=== PATIENT | female | born 2000 | race Caucasian/White ===

== ENCOUNTER → 2019-08-19 | Outpatient (REF) | payer OTHER ==
[2019-08-19 12:56] LABS: BASO % 0.4 % (0.0-1.0); EOS # 0.1 10^3/uL (0.0-0.5); EOS % 0.8 % (0.0-3.0); HEMATOCRIT 36.5 % (36.0-47.0); HEMOGLOBIN 12.1 g/dl (12.0-15.5); LYMPH % 25.6 % (24.0-44.0); MEAN CORPUSCULAR HEMOGLOBIN 29.1 pg (27.0-33.0); MEAN CORPUSCULAR HGB CONC 33.2 g/dl (32.0-36.5); MEAN CORPUSCULAR VOLUME 87.7 fl (80.0-96.0); MONO # 0.4 10^3/uL (0.0-0.8); MONO % 5.1 % (0.0-5.0); NEUTROPHILS # 5.2 10^3/uL (1.5-8.5); NEUTROPHILS % 67.7 % (36.0-66.0); PLATELET COUNT, AUTOMATED 347 10^3/uL (150-450); RED BLOOD COUNT 4.16 10^6/uL (4.00-5.40); WHITE BLOOD COUNT 7.6 10^3/uL (4.0-10.0)
[2019-08-19 13:18] LABS: ALBUMIN 3.6 GM/DL (3.2-5.2); ALT/SGPT 17 U/L (12-78); BILIRUBIN,TOTAL 0.8 MG/DL (0.2-1.0); BLOOD UREA NITROGEN 8 MG/DL (7-18); C REACTIVE PROTEIN QUANTITATIV 1.23 MG/DL (0.00-0.30); CALCIUM LEVEL 9.1 MG/DL (8.5-10.1); CARBON DIOXIDE LEVEL 24 MEQ/L (21-32); CHLORIDE LEVEL 105 MEQ/L (98-107); CREATININE FOR GFR 0.56 MG/DL (0.55-1.30); GLUCOSE, FASTING 82 MG/DL (70-100); POTASSIUM SERUM 4.4 MEQ/L (3.5-5.1); RHEUMATOID FACTOR QUANT < 10.0 IU/ML (<15.0); SODIUM LEVEL 139 MEQ/L (136-145)
[2019-08-19 13:40] LABS: ERYTHROCYTE SEDIMENTATION RATE 17 mm/hr (0-20)
[2019-08-24 00:06] LABS: ANA (HEP2) Negative (.); CYCLIC CITRULLINATED PEPTIDE 7 units (0-19); HLA-B27 Negative (.)
== END ==
LOC: M SFHCRHEU 10:33
PROVIDERS: ATTEND Internal Medicine
DX: M25.50 Pain in unspecified joint (principal); M53.3 Sacrococcygeal disorders, not elsewhere classified; E03.9 Hypothyroidism, unspecified
CPT/HCPCS: 36415; 80053; 81374; 84439; 84443; 85025; 85652; 86038; 86140; 86200; 86431; G0463

== ENCOUNTER 2020-01-12 19:06 | Inpatient (IN) | payer OTHER ==
[2020-01-12] VITALS (7 sets, daily range): BP systolic 96–140; BP diastolic 56–101
[~2020-01-12] VITALS: Ht 154.9 cm; Wt 103.4 kg
[2020-01-12] MEDS ORDERED: PREN29TA4 PO (19:59)
[2020-01-12] MEDS ORDERED: LEVO2TA PO (19:59)
--- NOTE | 2020-01-12 20:21 | HPEPDOC ---
Obstetrical History & Physical General Date of Admission Jan 12, 2020 at 19:06 History of Present Illness patient is a 19 yo @ 37wks gestation by lmp c/w 8wks US FAHEEM ([id number]) with pre-eclampsia without severe feature presents for scheduled IOL. today denies GARCIA/N/V/change in vision/abdominal pain. 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 BREAST: . ABDOMEN: Gravid and non-tender to touch. FETUS: fetus is vertex (VTX) by John. HEART RATE: Regular rate and rhythm. LUNGS: Clear to auscultation (CTA). EXTREMITIES: No edema. No clonus. Deep tendon reflexes (DTRs) + . EFW: 2800gm Laboratory Data 24H LABS Laboratory Tests 2 01/12/20 19:41: Serology Scanned Report Hepatitis B Testing Urine Culture: Other (gbs) Pertinent Laboratoy Data Blood Type: A- RBC Antibody Screen: Negative HIV: Negative Hepatitis B: Negative Rapid Plasma Reagin: Nonreactive Rubella: Immune Varicella: Immune Chlamydia/Gonorrhea: Negative Group B Streptococcus: Positive (URINE) Glucose Tolerance Test: 131 Anatomy Ultrasound Placenta Location: Anterior Normal Anatomy: Yes Placenta Previa: No Steroid Therapy Steroid Therapy: No Vaginal Examination Dilation: None Station: +4 Cervical Consistency: Medium Cervical Position: Middle Presentation: Cephalic presentation Assessment Heart Rate (FHR): 130 Variability: Moderate Accelerations: Positive Decelerations: None Tocometer Contractions: No Assessment/Plan Assessment patient is a 19 yo @ 37WKS with pre-eclampsia without severe feature admitted for IOL. Discussed induction with cytotect, blue bulb, pit, arom as needed. patient counseled regarding external and internal monitor. discussed possible need for magnesium and antihypertensive medication if having severe features. Risks of emergent section, infection requiring antibiotics, bleeding needing blood transfusion and associated risks, use of forceps or vacuums and associated risks, and episiotomy discussed with patient. Plan Admit and orient. Technology Consultant and consent. Diet: regular Group B Streptococcus (GBS) positive, start when in active labor pre-e labs start induction with cytotec, blue bulb, pit and arom as indicated anesthesia consult pelvis adequate for trial of labor. DO MAXWELL Sullivan LUAT N. DO Jan 12, 2020 20:21
[2020-01-12 20:24] LABS: HEMATOCRIT 34.3 % (36.0-47.0); HEMOGLOBIN 11.3 g/dl (12.0-15.5); MEAN CORPUSCULAR HEMOGLOBIN 28.1 pg (27.0-33.0); MEAN CORPUSCULAR HGB CONC 32.9 g/dl (32.0-36.5); MEAN CORPUSCULAR VOLUME 85.3 fl (80.0-96.0); PLATELET COUNT, AUTOMATED 312 10^3/uL (150-450); RED BLOOD COUNT 4.02 10^6/uL (4.00-5.40); WHITE BLOOD COUNT 9.5 10^3/uL (4.0-10.0)
[2020-01-12 20:54] LABS: ALT/SGPT 13 U/L (12-78); BILIRUBIN,TOTAL 0.3 MG/DL (0.2-1.0); CREATININE FOR GFR 0.67 MG/DL (0.55-1.30); GLOMERULAR FILTRATION RATE > 60.0 (>60); LDH LACTATE DEHYDROGENASE 144 U/L (84-246); URIC ACID 5.8 MG/DL (2.6-6.0)
[2020-01-12] MEDS ORDERED: miSOPROStol 25 MCG 1/4 TAB (S0191) SL ONE (21:15)
[2020-01-13] VITALS (56 sets, daily range): BP systolic 88–199; BP diastolic 52–133
[2020-01-13] MEDS: miSOPROStol 50 MCG 1/2 TAB (S0191) SL SCH ×3 (01:20→08:30)
[2020-01-13] MEDS: FAMOTIDINE 20 MG TAB PO SCH ×3 (01:41→20:56)
[2020-01-13] MEDS: LEVOTHYROXINE 125MCG TABLET (0.125MG) PO SCH (06:07)
[2020-01-13] MEDS ORDERED: MORPHINE 10 MG/ML 1ML VIAL (J2270) IV ONE (07:00)
[2020-01-13] MEDS ORDERED: PROMETHAZINE INJ 25 MG/ML VIAL (J2550) IV ONE (07:00)
[2020-01-13] MEDS ORDERED: MORPHINE 10 MG/ML 1ML VIAL (J2270) IM ONE (07:00)
[2020-01-13] MEDS ORDERED: PENICILLIN G POTASSIUM IV 5 MU in D5W MINI-BAG PLUS 100 ML IV STA (07:18)
[2020-01-13] MEDS ORDERED: hydrALAZINE 20MG/ML 1ML VIAL (J0360 PER 20MG) IV STA ×2 (07:23→08:18)
--- NOTE | 2020-01-13 07:26 | IPNPDOC ---
Text Note Date of Service The patient was seen on 01/13/20. NOTE patient feeling painful contractions. received 4th dose of cytotec around 0545. requesting for pain medication. denies GARCIA/N/V/change in vision vitals: in severe range. NAD fth: 145/mod donaldo/pos accel/no decel toco: ctx q 3mins. ce: 2-3/75/-1 a/p patient in latent labor, having pain. elevated BP may be due to pain. will give IV pain meds and reassess. may need to start on IV antihypertensive and mag with persistent severe range BP. start PCN for GBS prophy. DO MAXWELL VS,Fishbone, I+O VS, Fishbone, I+O Laboratory Tests 01/12/20 19:36 Vital Signs Date Time Temp Pulse Resp B/P (MAP) Pulse Ox O2 Delivery O2 Flow Rate FiO2 01/13/20 07:05 20 01/13/20 05:38 67 140/79 (99) 01/13/20 04:14 98.0 01/12/20 19:53 98 Room Air I&O- Last 24 Hours up to 6 AM 01/13/20 06:00 Intake Total 565 ml Output Total 725 ml Balance -160 ml MARIAMA ARREOLA DO Jan 13, 2020 07:26
[2020-01-13] MEDS ORDERED: MAG Sulf (L&D) 4 GM/100 ML 4 GM in IV 1 EA IV ONE (07:30)
[2020-01-13] MEDS: LR 1,000 ML IV SCH ×2 (07:32→14:26)
[2020-01-13] MEDS: MAG Sulf (OBGYN) 20GM/500ML 20,000 MG in IV 1 EA IV SCH ×2 (08:18→18:44)
[2020-01-13 08:24] LABS: ALT/SGPT 13 U/L (12-78); BILIRUBIN,TOTAL 0.7 MG/DL (0.2-1.0); CREATININE FOR GFR 0.71 MG/DL (0.55-1.30); GLOMERULAR FILTRATION RATE > 60.0 (>60); LDH LACTATE DEHYDROGENASE 165 U/L (84-246); URIC ACID 5.9 MG/DL (2.6-6.0)
[2020-01-13 08:32] LABS: HEMATOCRIT 36.4 % (36.0-47.0); HEMOGLOBIN 12.1 g/dl (12.0-15.5); MEAN CORPUSCULAR HGB CONC 33.2 g/dl (32.0-36.5); MEAN CORPUSCULAR VOLUME 84.3 fl (80.0-96.0); PLATELET COUNT, AUTOMATED 320 10^3/uL (150-450); RED BLOOD COUNT 4.32 10^6/uL (4.00-5.40)
[2020-01-13] MEDS ORDERED: FAMOTIDINE 20 MG TAB PO SCH (09:00)
[2020-01-13] MEDS: PENICILLIN G POTASSIUM IV 2.5 MU in IV 1 EA IV SCH ×2 (11:15→15:18)
--- NOTE | 2020-01-13 12:56 | IPNPDOC ---
Obstetrical Progress Note Date of Service Jan 13, 2020 Subjective S: Sarah is a 19yo at 37+1wks admitted last night for IOL d/t Pre-E, now with severe features. She has received 5mg hydralazine and her loading dose of magnesium sulfate, and now on her maintenance dose. She also received morphine and Phenergan for pain and is tolerating her contractions very well. She is s/p 3 doses of cytotec. Objective O: VSS, afebrile, BP now normotensive FHR 120s, moderate variability, no accels or decels CTX: q4-7 minutes and spacing out VE: 3.5/90/-3, BBOW, but fetus ballotable Vital Signs Date Time Temp Pulse Resp B/P (MAP) Pulse Ox O2 Delivery O2 Flow Rate FiO2 01/13/20 11:19 97.9 20 01/13/20 10:35 59 122/73 (89) 01/12/20 19:53 98 Room Air Assessment Heart Rate Tracing: Category I Tocometer Contractions: Yes Sterile Vaginal Examination Postion/Presentation: Cephalic presentation Assessment and Plan Status: Reassuring Group B Streptococcus: Positive Anticipate: Vaginal Delivery Additional Comments A: 19yo at 37+1wks, Pre-E with severe features, s/p cytotec. Category I FHT. P: CEFM x2 Close maternal/ monitoring Monitor for s/sx of worsening BPs/symptoms of Pre-E Start pitocin per low dose protocol Epidural or IV pain meds when desired Co-manage with OB Anticipate PAT ROD CNM Jan 13, 2020 12:56
[2020-01-13] MEDS ORDERED: OXYTOCIN DRIP 30 UNITS in IV 1 EA IV SCH ×2 (13:00→16:04)
[2020-01-13] MEDS ORDERED: FENTANYL 2MCG/ML ROPIVACAINE 0.2% IN 0.9% NACL 100ML IVBAG As Ordered ONE (14:10)
--- NOTE | 2020-01-13 14:21 | IPNPDOC ---
Text Note Date of Service The patient was seen on 01/13/20. NOTE S: Tolerating ctx. O: VS within appropriate range ABD Gravid, NT SVE 5/100/0 LE no edema, NT FHT: category 1, 130s, reactive, no decels, ctx q1-2min A/P: Fetus reassuring. Labor progressing well. AROM clear fluid done. VS,Fishbone, I+O VS, Fishbone, I+O Laboratory Tests 01/12/20 19:36 01/13/20 07:47 01/13/20 08:19 Vital Signs Date Time Temp Pulse Resp B/P (MAP) Pulse Ox O2 Delivery O2 Flow Rate FiO2 01/13/20 11:19 97.9 20 01/13/20 10:35 59 122/73 (89) 01/12/20 19:53 98 Room Air I&O- Last 24 Hours up to 6 AM 01/13/20 05:59 Intake Total 565 ml Output Total 725 ml Balance -160 ml Donna Renae MD Jan 13, 2020 14:21
[2020-01-13] MEDS ORDERED: REFRIGERATOR IV KEYS XX PRN (15:00)
[2020-01-13] MEDS ORDERED: ONDANSETRON 4MG/2ML VIAL IV PRN ×2 (15:00→16:15)
[2020-01-13] MEDS ORDERED: diphenhydrAMINE 50MG/ML VIAL (J1200) IV PRN (15:00)
[2020-01-13] MEDS ORDERED: EPIDURAL COMMENT XX SCH (15:00)
[2020-01-13] MEDS ORDERED: LACTATED RINGER'S 1000 ML IV PRN (15:00)
[2020-01-13] MEDS ORDERED: FENTANYL/ROPIVACAINE/NACL BAG 100 ML EPIDURAL SCH (15:00)
[2020-01-13] MEDS ORDERED: EPIDURAL/PCA KEYS XX PRN (15:00)
[2020-01-13] MEDS ORDERED: NALOXONE INJ 0.4MG/1ML VIAL (J2310 PER 1MG) IV PRN (15:00)
[2020-01-13] MEDS ORDERED: ePHEDrine SULFATE 25 MG/5 ML(5MG/ML) SYRINGE IV PRN (15:00)
[2020-01-13] MEDS ORDERED: RHOGAM 300 MCG (1500 IU) INJ (J2790) IM SCH (16:15)
[2020-01-13] MEDS ORDERED: diphenhydrAMINE 25MG CAP PO PRN (16:15)
[2020-01-13] MEDS ORDERED: DIBUCAINE 1% OINTMENT 30GM TOP PRN (16:15)
[2020-01-13] MEDS ORDERED: CALCIUM CARBONATE 500 MG CHEW U/D PO PRN (16:15)
[2020-01-13] MEDS ORDERED: MOM 30ML SUSPENSION UDC PO PRN (16:15)
[2020-01-13] MEDS ORDERED: SIMETHICONE 80 MG CHEW TAB PO PRN (16:15)
[2020-01-13] MEDS ORDERED: ACETAMINOPHEN 500 MG TAB PO PRN (16:15)
[2020-01-13] MEDS ORDERED: ANUSOL HC CREAM 30GM TOP PRN (16:15)
[2020-01-13] MEDS ORDERED: MEASLES,MUMPS,RUBELLA VACCINE INJ (MMR-II) (90707) SC SCH (16:15)
--- NOTE | 2020-01-13 16:15 | DNPDOC ---
[facility] Delivery Note Delivery Note DATE OF DELIVERY: 01/13/2020 PREDELIVERY DIAGNOSIS: 37-1/7 weeks' gestation and labor. POST DELIVERY DIAGNOSIS: Delivered. PROCEDURE: Spontaneous vaginal delivery BASE CLOTH INSPECTOR: Dr. Renae ANESTHESIA: None. ESTIMATED BLOOD LOSS: 200 mL. FINDINGS: 4 pound 13 ounce 2190gm girl , Score 9/9, nuchal cord times 1. DELIVERY SUMMARY: Patient is a 19-year-old 2 now para 3 who was admitted to labor and delivery for severe preeclampsia with active labor for 10hours. Patient AROM clear around 1400. Baby girl head was delivered onto bed as I was walking into the room without difficulty over intact perineum. The nose and mouth were bulb suctioned. x1 nuchal cord was noted but delivered with body. Infant was handed on mother's belly. Cord was then clamped x2 and cut after pulsation. Pitocin bolus was started. Perineum and vagina was inspected and found to have no laceration. The placenta was then delivered at 1547 spontaneously intact. Cord had a 3 vessel cord. EBL was 200mL. The vagina and perineum were reinspected and no further lacerations were found and hemostasis was good. Fundus was firm. Patient tolerated delivery well. Donna Renae MD Jan 13, 2020 16:15
[2020-01-13] MEDS: DOCUSATE SODIUM 100 MG CAP PO SCH (20:56)
[2020-01-13] MEDS: IBUPROFEN 800 MG TAB PO PRN (20:59)
[2020-01-14] VITALS (23 sets, daily range): BP systolic 98–168; BP diastolic 54–97
--- NOTE | 2020-01-14 03:09 | IPNPDOC ---
Progress Note Date of Service: Jan 14, 2020 Day#: 1 Progress Note SUBJECT: Patient is a 19-year-old 2 now Para 2 status post uncomplicated spontaneous vaginal delivery without post vaginal laceration, doing well day # 1. She has been voiding well/abundant with catheter and tolerating regular diet. Breast feeding without issue. Reports lochia is like a normal period. Reports some cramping with . Denies any pain. OBJECTIVE: VITAL SIGNS: Within normal limits, afebrile. GENERAL: No acute distress HEENT: MMM BREAST: Nontender, no erythema CARDIOVASCULAR EXAMINATION: RRR RESPIRATORY EXAMINATION: Bilaterally clear ABDOMINAL EXAMINATION: Soft, appropriate tenderness, nondistended, fundus -2 PERINEUM: Intact, minimal lochia EXTREMITIES: no edema, nontender, DTR +2 ASSESSMENT: Patient is a 19-year-old 2 now Para 2 status post uncomplicated spontaneous vaginal delivery without post vaginal laceration, doing well day # 1. Vitals within normal limits, afebrile, hemodynamically stable with no evidence of infection. PLAN: 1. Continue care. 2. Tylenol and Motrin for pain. 3. Encourage breast feeding and ambulation. 4. Stop magnesium sulfate at 1600. VS, I&O, 24H, Fishbone Vital Signs/I&O Vital Signs Date Time Temp Pulse Resp B/P (MAP) Pulse Ox O2 Delivery O2 Flow Rate FiO2 01/13/20 14:37 97.8 20 01/13/20 14:35 90 01/13/20 14:31 136/82 (100) 01/12/20 19:53 98 Room Air I&O- Last 24 Hours up to 6 AM 01/13/20 06:00 Intake Total 565 ml Output Total 725 ml Balance -160 ml Laboratory Data 24H LABS Laboratory Tests 2 01/12/20 19:36: Nucleated Red Blood Cells % (auto) 0.0, Glomerular Filtration Rate > 60.0, Uric Acid 5.8, Total Bilirubin 0.3, Aspartate Amino Transf (AST/SGOT) 13, Alanine Aminotransferase (ALT/SGPT) 13, Lactate Dehydrogenase 144, Syphilis Serology NONREACTIVE 01/12/20 19:41: Serology Scanned Report Hepatitis B Testing 01/13/20 07:47: Glomerular Filtration Rate > 60.0, Uric Acid 5.9, Total Bilirubin 0.7#, Aspartate Amino Transf (AST/SGOT) 13, Alanine Aminotransferase (ALT/SGPT) 13, Lactate Dehydrogenase 165 01/13/20 08:19: Nucleated Red Blood Cells % (auto) 0.0 CBC/BMP Laboratory Tests 01/12/20 19:36 01/13/20 07:47 01/13/20 08:19 Donna Renae MD Jan 13, 2020 16:17
[2020-01-14] MEDS: MAG Sulf (OBGYN) 20GM/500ML 20,000 MG in IV 1 EA IV SCH (03:30)
[2020-01-14] MEDS: LEVOTHYROXINE 125MCG TABLET (0.125MG) PO SCH (06:00)
[2020-01-14 07:07] LABS: HEMATOCRIT 32.9 % (36.0-47.0); HEMOGLOBIN 10.9 g/dl (12.0-15.5); MEAN CORPUSCULAR HGB CONC 33.1 g/dl (32.0-36.5); MEAN CORPUSCULAR VOLUME 84.6 fl (80.0-96.0); PLATELET COUNT, AUTOMATED 309 10^3/uL (150-450); RED BLOOD COUNT 3.89 10^6/uL (4.00-5.40); WHITE BLOOD COUNT 10.8 10^3/uL (4.0-10.0)
[2020-01-14 07:30] LABS: ALT/SGPT 12 U/L (12-78); BILIRUBIN,TOTAL 0.3 MG/DL (0.2-1.0); CREATININE FOR GFR 0.62 MG/DL (0.55-1.30); GLOMERULAR FILTRATION RATE > 60.0 (>60); LDH LACTATE DEHYDROGENASE 206 U/L (84-246); URIC ACID 6.4 MG/DL (2.6-6.0)
[2020-01-14] MEDS: DOCUSATE SODIUM 100 MG CAP PO SCH ×2 (09:23→20:35)
[2020-01-14] MEDS: PRENATAL VITAMINS CHEWABLE TABLET PO SCH (09:23)
[2020-01-14] MEDS: FAMOTIDINE 20 MG TAB PO SCH ×2 (09:23→20:35)
[2020-01-14] MEDS: IBUPROFEN 800 MG TAB PO PRN (17:43)
[2020-01-15] VITALS (7 sets, daily range): BP systolic 126–162; BP diastolic 77–102
[2020-01-15] MEDS: LEVOTHYROXINE 125MCG TABLET (0.125MG) PO SCH (06:19)
[2020-01-15 08:16] LABS: HEMATOCRIT 32.6 % (36.0-47.0); HEMOGLOBIN 10.8 g/dl (12.0-15.5); MEAN CORPUSCULAR HGB CONC 33.1 g/dl (32.0-36.5); MEAN CORPUSCULAR VOLUME 87.4 fl (80.0-96.0); PLATELET COUNT, AUTOMATED 265 10^3/uL (150-450); RED BLOOD COUNT 3.73 10^6/uL (4.00-5.40); WHITE BLOOD COUNT 7.9 10^3/uL (4.0-10.0)
[2020-01-15] MEDS: DOCUSATE SODIUM 100 MG CAP PO SCH ×2 (08:28→21:43)
[2020-01-15] MEDS: PRENATAL VITAMINS CHEWABLE TABLET PO SCH (08:29)
[2020-01-15] MEDS: FAMOTIDINE 20 MG TAB PO SCH ×2 (08:29→21:43)
[2020-01-15 08:38] LABS: ALT/SGPT 14 U/L (12-78); BILIRUBIN,TOTAL 0.4 MG/DL (0.2-1.0); CREATININE FOR GFR 0.71 MG/DL (0.55-1.30); GLOMERULAR FILTRATION RATE > 60.0 (>60); LDH LACTATE DEHYDROGENASE 166 U/L (84-246); URIC ACID 6.6 MG/DL (2.6-6.0)
--- NOTE | 2020-01-15 11:53 | IPN ---
DATE: 01/15/2020 This lady is a 19-year-old, 2, now para 3 was admitted for induction of labor at 37 weeks because of history of preeclampsia. She had a spontaneous vaginal delivery female weighing 4 pounds 13 ounces (2190 grams), score of 9 and 9 at one and five minutes, respectfully. Cord around neck times one. She is presently hypothyroid on medication. She was on magnesium sulfate for 24 hours. This was removed after 24 hours. Her blood pressures she had one severe range on 01/14/2020 at 2200 hours. The rest have been in the mid range blood pressures. She denies any headache, right upper quadrant pain, pedal edema or any gastrointestinal (GI) or visual disturbances. On reviewing her lab work, her admitting hemoglobin 11.3, hematocrit. 34.3 and platelets were 312. On day #2, her hemoglobin 10.9, hematocrit 32.9 and platelets were 309. In reviewing her chemistries over the 3 days her uric acid is elevated. It was initially 5.8, now at 6.4. She did have a protein creatinine ratio and presently we are evaluating her for preeclampsia and despite the fact that her vital signs are good today we would anticipate one more day in the hospital because of being on magnesium sulfate and having a couple of severe range blood pressures. We discussed this with the patient, who is somewhat unhappy to stay. However, we did review with her that preeclampsia can occur up to 7-10 days post delivery and in order to assess her for a good 24 hours off magnesium sulfate and then she is definitely going to have to make an appointment 1 week out from discharge for blood pressure check at [facility] and her 6-week check. We talked about the symptoms of preeclampsia, including headaches, visual disturbances right upper quadrant pain, nausea, vomiting, decreased urinary output, pedal edema. The patient expressed understanding of the plan of care. Our plan is to repeat some of her blood work today and the option of sending her home tomorrow is in the forecast. We will reevaluate her and her blood work tomorrow morning.
[2020-01-15 14:44] LABS: CREATININE,RANDOM URINE 47.7 MG/DL; TOTAL PROTEIN,RANDOM URINE 18.8 MG/DL (0.0-12.0)
[2020-01-16] VITALS (7 sets, daily range): BP systolic 133–172; BP diastolic 88–104
[2020-01-16] MEDS: LEVOTHYROXINE 125MCG TABLET (0.125MG) PO SCH (05:27)
[2020-01-16 07:47] LABS: HEMATOCRIT 36.2 % (36.0-47.0); HEMOGLOBIN 11.6 g/dl (12.0-15.5); MEAN CORPUSCULAR HEMOGLOBIN 27.5 pg (27.0-33.0); MEAN CORPUSCULAR VOLUME 85.8 fl (80.0-96.0); PLATELET COUNT, AUTOMATED 303 10^3/uL (150-450); RED BLOOD COUNT 4.22 10^6/uL (4.00-5.40); WHITE BLOOD COUNT 7.9 10^3/uL (4.0-10.0)
[2020-01-16] MEDS: PRENATAL VITAMINS CHEWABLE TABLET PO SCH (08:05)
[2020-01-16] MEDS: FAMOTIDINE 20 MG TAB PO SCH ×2 (08:05→20:37)
[2020-01-16] MEDS: DOCUSATE SODIUM 100 MG CAP PO SCH ×2 (08:06→20:37)
[2020-01-16 08:09] LABS: ALT/SGPT 25 U/L (12-78); BILIRUBIN,TOTAL 0.5 MG/DL (0.2-1.0); CREATININE FOR GFR 0.72 MG/DL (0.55-1.30); GLOMERULAR FILTRATION RATE > 60.0 (>60); LDH LACTATE DEHYDROGENASE 157 U/L (84-246); URIC ACID 7.3 MG/DL (2.6-6.0)
[2020-01-16] MEDS ORDERED: LABETALOL 100 MG TAB PO SCH (09:00)
--- NOTE | 2020-01-16 10:16 | IPN ---
DATE: 01/16/2020 This lady is a 19-year-old, 2, para 3, was admitted for induction of labor because of preeclampsia (pre E) at 37 weeks of gestation had a spontaneous vaginal delivery of a female , 4 pounds 13 ounces (2190 grams). score of 9 and 9 at one and five minutes, respectively. Cord times one around the neck. She is also hypothyroid. She had been treated for pre E and over a course of her care her blood pressures have been in the mid range 144/101, 144/98, 144/88, 148/90, and presently she is 148/92. She still has some edema. No headache. No right upper quadrant pain. We did reevaluate her labs yesterday, and hemoglobin is 10.8, hematocrit 32.6 and platelets were 265, but in her chemistry her uric acid seems to be going up. It is presently 6.6, predelivery it was 5.8. Her protein creatinine ratio is also elevated and it seems to be going up despite the fact that she is voiding well. Our plan of management today is to start her on labetalol 100 twice a day and to repeat her lab work and hopefully by tomorrow she should be able to go home. Our concern is a relapse of her pre E more significant than it was when she came in, which required her to be started on magnesium sulfate. We explained this to the patient, although she was upset, she understood and hopefully by tomorrow with resolution or a turning point in her pre E should start and that she will maintain her blood pressure control with antihypertensives. We are planning on her to come into the office in 1 week for blood pressure check and for routine 6-week check. All questions were answered. 20-minute discussion.
[2020-01-16] MEDS: LABETALOL 100 MG TAB PO SCH (19:32)
[2020-01-17 02:00] VITALS: BP 123/83
[2020-01-17] MEDS: LEVOTHYROXINE 125MCG TABLET (0.125MG) PO SCH (05:54)
[2020-01-17 06:00] VITALS: BP 153/103
[2020-01-17] MEDS: LABETALOL 100 MG TAB PO SCH (06:29)
[2020-01-17 07:56] VITALS: BP 146/78
[2020-01-17] MEDS: PRENATAL VITAMINS CHEWABLE TABLET PO SCH (08:06)
[2020-01-17] MEDS: IBUPROFEN 800 MG TAB PO PRN (08:06)
--- NOTE | 2020-01-17 08:13 | IPNPDOC ---
Progress Note Date of Service: Jan 17, 2020 Day#: 3 Progress Note SUBJECT: Patient is a 19 yo s/p ppd #3. she was induced for pre-ecla mpsia. She developed severe features during peripartum and was started on mag. she had mag for 24 hrs . Currently on labetalol 200mg TID. This morning without concerns. denies GARCIA/N/V/change in vision/abdominal pain. She has been ambulating, voiding spontaneously without issue and tolerating regular diet. Breast feeding without issue. Reports lochia is like a normal period. she plans to have IUD placed OBJECTIVE: VITAL SIGNS:mild range BP, afebrile. Alert and oriented times three. Abdomen: Fundus firm at U-2. Soft, NTTP. le: non pitting edema, symmetrical, no erythema/tenderness A/P ppd #3, BP controlled on labetalol 200 mg TID. discharge instructions given. discharge today with close f/u at clinic. Le, DO VS, I&O, 24H, Fishbone Vital Signs/I&O Vital Signs Date Time Temp Pulse Resp B/P (MAP) Pulse Ox O2 Delivery O2 Flow Rate FiO2 01/17/20 07:56 146/78 (100) 01/17/20 06:00 97.8 80 18 100 Room Air I&O- Last 24 Hours up to 6 AM 01/17/20 06:00 Intake Total 1800 ml Output Total 2400 ml Balance -600 ml MARIAMA ARREOLA DO Jan 17, 2020 08:13
--- NOTE | 2020-01-17 08:14 | OBDS ---
[facility] Obstetrical Discharge Sum. Obstetrical Discharge Summary : 2 Term: 1 Pre-term: 1 Abortions: 0 Livin VDRL: Non-Reactive Rh: Negative Rubella: Immune Infant Weight: grams Anesthesia: Regional Anesthesia A/P, Post Course List any complications Admission diagnosis: 1. Preeclampsia without severe feature 2. Gravid at 37wks Discharge diagnosis: 1. 2. Preeclampsia with severe feature (severe range BP) Condition at Discharge: stable Discharge Instructions: Home Activity: as tolerated Diet: regular Medications: filled at [facility] Follow-up: walk in at OB clinic in 2 days for blood pressure check and make 1-2 weeks f/u visit. Hospital course: Patient admitted at 37wks gestation with pre-eclampsia for induction of labor. She progressed to have a spontaneous vaginal delivery. During her peripartum course, she developed severe range blood pressure. She received IV antihypertensive and placed on magnesium for seizure prophy. She completed 24hrs of magnesium . course her blood pressure remains elevated and patient started on labetalol orally. Patient meets criteria for discharge on day #3. DO MAXWELL Sullivan LUAT N. DO Jan 17, 2020 02:01
[2020-01-17] MEDS: FAMOTIDINE 20 MG TAB PO SCH (08:54)
[2020-01-17] MEDS: DOCUSATE SODIUM 100 MG CAP PO SCH (08:54)
[2020-01-17 10:00] VITALS: BP 117/74
[2020-01-17] MEDS ORDERED: LABE10TAB PO (13:03)
== END 2020-01-17 11:40 | disposition home or self-care (01) | DRG 807 ==
LOC: M LDI 19:06 → M OBS 01-14 16:25
PROVIDERS: ADMIT Registered Nurse Maternal Newborn; ATTEND Registered Nurse Maternal Newborn
PROC: 3E0DXGC Introduction of Other Therapeutic Substance into Mouth and Pharynx, External Approach (ICD-10-PCS; 2020-01-12)
PROC: 10E0XZZ Delivery of Products of Conception, External Approach (ICD-10-PCS; principal; 2020-01-13)
PROC: 10907ZC Drainage of Amniotic Fluid, Therapeutic from Products of Conception, Via Natural or Artificial Opening (ICD-10-PCS; 2020-01-13)
DX: O14.14 Severe pre-eclampsia complicating childbirth (principal); Z37.0 Single live birth; Z3A.37 37 weeks gestation of pregnancy; O99.824 Streptococcus B carrier state complicating childbirth; O69.81X0 Labor and delivery complicated by cord around neck, without compression, not applicable or unspecified

== ENCOUNTER 2021-05-19 23:47 | Emergency (ER) | payer OTHER ==
[~2021-05-19] VITALS: Ht 154.9 cm; Wt 102.3 kg
[~2021-05-19 23:47] MED LIST: LABE100T4 PO; LEVO2TA PO; PREN29TA4 PO
[2021-05-19 23:48] VITALS: BP 125/86
--- OUTSIDE RECORDS SUMMARY | 2021-05-19 23:55 | CCD ---
Author Author [facility] Organization [facility] Address Unknown Phone Unavailable Care Team Providers Care Diesel Service Journeyman Name Role Phone RENA, B JASMYNE CIGAR TOBACCO REHANDLER Unavailable Unavailable RENA, B JASMYNE CIGAR TOBACCO REHANDLER Unavailable Unavailable RENA, B JASMYNE CIGAR TOBACCO REHANDLER Unavailable Unavailable RENA, B JASMYNE CIGAR TOBACCO REHANDLER Unavailable Unavailable RENA, B JASMYNE CIGAR TOBACCO REHANDLER Unavailable Unavailable RENA, B JASMYNE CIGAR TOBACCO REHANDLER Unavailable Unavailable RENA, B JASMYNE CIGAR TOBACCO REHANDLER Unavailable Unavailable RENA, B JASMYNE CIGAR TOBACCO REHANDLER Unavailable Unavailable RENA, B JASMYNE CIGAR TOBACCO REHANDLER Unavailable Unavailable RENA, B JASMYNE CIGAR TOBACCO REHANDLER Unavailable Unavailable RENA, B JASMYNE CIGAR TOBACCO REHANDLER Unavailable Unavailable RENA, B JASMYNE CIGAR TOBACCO REHANDLER Unavailable Unavailable RENA, B JASMYNE CIGAR TOBACCO REHANDLER Unavailable Unavailable RENA, B JASMYNE CIGAR TOBACCO REHANDLER Unavailable Unavailable RENA, B JASMYNE CIGAR TOBACCO REHANDLER Unavailable Unavailable RENA, B JASMYNE CIGAR TOBACCO REHANDLER Unavailable Unavailable RENA, B JASMYNE CIGAR TOBACCO REHANDLER Unavailable Unavailable RENA, B JASMYNE CIGAR TOBACCO REHANDLER Unavailable Unavailable RENA, B JASMYNE CIGAR TOBACCO REHANDLER Unavailable Unavailable RENA, B JASMYNE CIGAR TOBACCO REHANDLER Unavailable Unavailable RENA, B JASMYNE CIGAR TOBACCO REHANDLER Unavailable Unavailable RENA, B JASMYNE CIGAR TOBACCO REHANDLER Unavailable Unavailable RENA, B JASMYNE CIGAR TOBACCO REHANDLER Unavailable Unavailable RENA, B JASMYNE CIGAR TOBACCO REHANDLER Unavailable Unavailable RENA, B JASMYNE CIGAR TOBACCO REHANDLER Unavailable Unavailable RENA, B JASMYNE CIGAR TOBACCO REHANDLER Unavailable Unavailable RENA, B JASMYNE CIGAR TOBACCO REHANDLER Unavailable Unavailable RENA, B JASMYNE CIGAR TOBACCO REHANDLER Unavailable Unavailable RENA, B JASMYNE CIGAR TOBACCO REHANDLER Unavailable Unavailable RENA, B JASMYNE CIGAR TOBACCO REHANDLER Unavailable Unavailable RENA, B JASMYNE CIGAR TOBACCO REHANDLER Unavailable Unavailable RENA, B JASMYNE CIGAR TOBACCO REHANDLER Unavailable Unavailable RENA, B JASMYNE CIGAR TOBACCO REHANDLER Unavailable Unavailable RENA, B JASMYNE CIGAR TOBACCO REHANDLER Unavailable Unavailable RENA, B JASMYNE CIGAR TOBACCO REHANDLER Unavailable Unavailable RENA, B JASMYNE CIGAR TOBACCO REHANDLER Unavailable Unavailable RENA, B JASMYNE CIGAR TOBACCO REHANDLER Unavailable Unavailable RENA, B JASMYNE CIGAR TOBACCO REHANDLER Unavailable Unavailable RENA, B JASMYNE CIGAR TOBACCO REHANDLER Unavailable Unavailable RENA, B JASMYNE CIGAR TOBACCO REHANDLER Unavailable Unavailable RENA, B JASMYNE CIGAR TOBACCO REHANDLER Unavailable Unavailable RENA, B JASMYNE CIGAR TOBACCO REHANDLER Unavailable Unavailable RENA, B JASMYNE CIGAR TOBACCO REHANDLER Unavailable Unavailable RENA, B JASMYNE CIGAR TOBACCO REHANDLER Unavailable Unavailable RENA, B JASMYNE CIGAR TOBACCO REHANDLER Unavailable Unavailable RENA, B JASMYNE CIGAR TOBACCO REHANDLER Unavailable Unavailable RENA, B JASMYNE CIGAR TOBACCO REHANDLER Unavailable Unavailable RENA, B JASMYNE CIGAR TOBACCO REHANDLER Unavailable Unavailable RENA, B JASMYNE CIGAR TOBACCO REHANDLER Unavailable Unavailable RENA, B JASMYNE CIGAR TOBACCO REHANDLER Unavailable Unavailable RENA, B JASMYNE CIGAR TOBACCO REHANDLER Unavailable Unavailable RENA, B JASMYNE CIGAR TOBACCO REHANDLER Unavailable Unavailable RENA, B JASMYNE CIGAR TOBACCO REHANDLER Unavailable Unavailable RENA, B JASMYNE CIGAR TOBACCO REHANDLER Unavailable Unavailable RENA, B JASMYNE CIGAR TOBACCO REHANDLER Unavailable Unavailable RENA, B JASMYNE CIGAR TOBACCO REHANDLER Unavailable Unavailable RENA, B JASMYNE CIGAR TOBACCO REHANDLER Unavailable Unavailable RENA, B JASMYNE CIGAR TOBACCO REHANDLER Unavailable Unavailable RENA, B JASMYNE CIGAR TOBACCO REHANDLER Unavailable Unavailable RENA, B JASMYNE CIGAR TOBACCO REHANDLER Unavailable Unavailable RENA, B JASMYNE CIGAR TOBACCO REHANDLER Unavailable Unavailable RENA, B JASMYNE CIGAR TOBACCO REHANDLER Unavailable Unavailable Re-disclosure Warning The records that you are about to access may contain information from federally-assisted alcohol or drug abuse programs. If such information is present, then the following federally mandated warning applies: This information has been disclosed to you from records protected by federal confidentiality rules (42 CFR part 2). The federal rules prohibit you from making any further disclosure of this information unless further disclosure is expressly permitted by the written consent of the person to whom it pertains or as otherwise permitted by 42 CFR part 2. A general authorization for the release of medical or other information is NOT sufficient for this purpose. The Federal rules restrict any use of the information to criminally investigate or prosecute any alcohol or drug abuse patient.The records that you are about to access may contain highly sensitive health information, the redisclosure of which is protected by Article 27-F of the [facility] Public Health law. If you continue you may have access to information: Regarding HIV / AIDS; Provided by facilities licensed or operated by the [facility] Office of Mental Health; or Provided by the [facility] Office for People With Developmental Disabilities. If such information is present, then the following [facility] mandated warning applies: This information has been disclosed to you from confidential records which are protected by state law. State law prohibits you from making any further disclosure of this information without the specific written consent of the person to whom it pertains, or as otherwise permitted by law. Any unauthorized further disclosure in violation of state law may result in a fine or half-way sentence or both. A general authorization for the release of medical or other information is NOT sufficient authorization for further disc losure. Encounters Encounter Providers Location Date Indications Data Source(s ) Outpatient Attender: JASMYNE CHASE NP Physical Therapy 09:00:00 AM EDT [facility] ([facility]) OFFICE OUTPATIENT VISIT 15 MINUTES Attender: JASMYNE CHASE NP Physical Therapy 11/08/2020 09:00:00 AM EDT [facility] ([facility]) Outpatient Attender: JASMYNE CHASE NP Physical Therapy 07:45:00 AM EST [facility] ([facility]) Outpatient Attender: JASMYNE CHASE NP Physical Therapy 01:30:00 PM EST [facility] ([facility]) Outpatient [facility] 04/24/2020 10:05:01 AM EDT [facility] Outpatient [facility] 04/16/2020 01:09:59 PM EDT [facility] Outpatient [place] 04/16/2020 01:09:59 PM EDT [facility] Outpatient [place] 04/16/2020 11:49:01 AM EDT [facility] Outpatient [place] 04/16/2020 11:47:00 AM EDT [facility] Outpatient [place] 04/16/2020 11:46:00 AM EDT [facility] Outpatient [place] 04/16/2020 10:44:01 AM EDT [facility] Outpatient [place] 04/16/2020 10:43:00 AM EDT [facility] Medications Medication Brand Name Start Date Product Form Dose Route Admi nistrative Instructions Pharmacy Instructions Status Indications Reaction Description Data Source(s) Levothyroxine Sodium 0.15 MG Oral Tablet [Synthroid] Synthro id 03/22/2021 12:00:00 AM EDT ORAL active M [facility] ([facility] ) Levothyroxine Sodium 0.175 MG Oral Tablet [Synthroid] Synthr oid 09/04/2020 12:00:00 AM EST ORAL active M [facility] ([facility]) Insurance Providers Payer name Policy type / Coverage type Policy ID Covered republican ID Covered republican's relationship to vázquez Policy Vázquez Plan Information [facility] P UNAVAILABLE S UNAVAILABLE [facility] [id number] [facility] [id number] Problems, Conditions, and Diagnoses Code Display Name Description Problem Type Effective Dates Data Source(s) 520.6 [place] teeth impaction [place] teeth impaction 04/16/2020 01:09:44 PM EDT [facility] Surgeries/Procedures Procedure Description Date Indications Data Source(s) OFFICE OUTPATIENT VISIT 25 MINUTES 03/21/2021 12:00:00 AM EDT [facility] ([facility]) OFFICE OUTPATIENT VISIT 15 MINUTES 11/08/2020 12:00:00 AM EDT [facility] ([facility]) Results ID Date Data Source [id number] 04/16/2020 11:08:05 AM EDT [facility] Vital SignsBlood Pressure: 108/79 Patient History Medical History:HypothyroidismSurgical History:None. Family History:Cancer - Breast (Paternal Grandmother)Diabetes (Mother, Paternal Grandmother)Heart disease (Paternal Grandmother)Hypertension (Mother, Father, Paternal Grandmother)Social/Personal History: Smoking Status: never smokerChief Complaint: Routine CleaningVisit Type: ExamCurrent Problems: [place] teeth impaction (ICD-520.6) (ZIN20-W99.1)Problem list reviewed during this update.No known problems.Current Medications: * SYNTHROID * MIRENA Medication list reviewed during this update.Allergy list reviewed during this update.No known allergies.Past Medical History:(reviewed - no changes required) Hypothyroidism Dental Chart: Procedures:Type - CDT Code - Description B - (D1206) Topical application of fluoride varnish (Performed by Regine Stein RDH) B - (D1110) Prophylaxis, adult (Performed by Stein RANDALLRodoth) B - (D0274) Bitewings, 4 radiographic images (Performed by Emil PEREIRARodoth) B - (D0330) Panoramic film (Performed by Stein RDRodoth) B - (D0150) Comprehensive oral evaluation - new or established patient (Performed by Lydia Maldonado DDS) Treatments:Type - CDT Code - Description T - (D7140) Extraction, erupted tooth or exposed root (elevation and/or forceps removal) on Tooth # 1 (Performed by Emil PEREIRARodoth) T - (D7140) Extraction, erupted tooth or exposed root (elevation and/or forceps removal) on Tooth # 16 (Performed by Stein RD, Regine) T - (D7140) Extraction, erupted tooth or exposed root (elevation and/or forceps removal) on Tooth # 17 (Performed by Stein [facility]) T - (D7140) Extraction, erupted tooth or exposed root (elevation and/or forceps removal) on Tooth # 32 (Performed by Stein RDRegine) Existing:Type - CDT Code - Description[E] Not Erupted On #1, #17, #32[E] Amalgam Moravian On #3 Surface OL, #31 Surface O[E] Root Canal On #18 Region DM[E] Resin-Based Composite - Direct On #19 Surface O, #30 Surface O[E] [place] - 3/4 Cast Predominantly Base Metal On #18[E] Sealant - Per Tooth On #15 Surface O, #3 Surface O Chart Notes:efowler (Apr 16 2020 12:00PM): CC: Pt reports pain in jaw and gums.RMH: New pt; hypothyroidismAllergies: NoneSmoking Status: NeverBP: See BP log - Taken today - WNLTemp: 97.3EO/IO: Oral cancer screening performed - no abnormalites noted; normal mucosa with no white or raised patches. No lymphadenopathy. No poping or clicking of the TMJ. Pt has good oral health and good oral hygiene. No caries per doc. Dr. Maldonado recommends having all wisdom teeth inclusing two max supernumerary teeth ext. OS referral sent. Pt reports she brushes 2xday and flosses abot 3xweek with floss pick. Light to mod calc in LA, trace plaque, and trace bleeding. 1-3mm probing depths with no BOP. Behavior: Very compliantTX: Adult prophy, Perio charting, Pano, 4 BWX, and exam by Dr. Campos. Additional PPE used due to COVID-19. This included a minimum of a N95, a surgical mask, a hair covering, a face shield, proctective eyewear, a gown, and additional barriers.OHI: Spoke to pt about brushing and flossing. Told pt she is doing a great job. Recommneded daily flossing. NV: Biannual exam and [id number]: Pt has three children, one set of twins. family. Regine Stein RDH by crystal (04/16/2020 12:00 PM): ; vikram (Apr 16 2020 1:09PM): [facility]). CC: some discomfort with wisdom teethReviewed Xrays. Exam: no caries detected. OCS: WNL, IO/ EO completed, No significant hard findings upon clinical exam.Additional PPE requirements due to COVID-19 in the dental setting, N95, surgical mask, hair covering, gown and shieldOS referral given for extraction of third molars as well as maxillary supernumeraries.Pt was cooperative. OHI given Referral: N/A NV:recallRegine Stein RDH by vikram (04/16/2020 1:09 PM): Tooth Notes and Watches: Assessment & Plan Problems:Added: [place] teeth impaction (ICD-520.6) (ICD10- K01.1)Medications:SYNTHROIDMIRENAMedication Changes:Added: * MIRENA* SYNTHROIDAllergies:No Known Allergies (updated 04/16/2020) Orders:Oral Surgery Referral [CPT-[id number]] Curren t Problems: [place] teeth impaction (ICD-520.6) (STF12-C33.1)Current Medications: * SYNTHROID * MIRENA Dental Chart: Chart Notes:mtyo (Apr 24 2020 10:04AM): Fltx varnish placed Tooth Notes and Watches: Name Value Range Interpretation Code Description Data Jill rce(s) Supporting Document(s) Procedure Social History Code Duration Value Status Description Data Source(s ) Smoking 03/21/2021 12:00:00 AM EDT Never Smoked Cigarettes com pleted Never Smoked Cigarettes [facility] ([facility]) Vital Signs ID Date Data Source UNK Name Value Range Interpretation Code Description Data Source(s) Body height 60.9 [in_i] 60.9 [in_i] [facility] ([facility] ) 5'0.90" Body weight 228.38 [lb_av] 228.38 [lb_av] MEDEN T ([facility]) Body mass index (BMI) [Ratio] 43.3 kg/m2 43.3 k g/m2 [facility] ([facility]) Systolic blood pressure 110 mm[Hg] 110 mm[Hg] M EDENT ([facility]) Diastolic blood pressure 82 mm[Hg] 82 mm[Hg] [facility] ([facility]) Heart rate 79 /min 79 /min [facility] ([facility]) Oxygen saturation in Arterial blood by Pulse oximetry 98 % 98 % [facility] ([facility]) Heart rate 71 /min 71 /min [facility] ([facility]) Body temperature 96.6 [degF] 96.6 [degF] [facility] ([facility] ) Oxygen saturation in Arterial blood by Pulse oximetry 98 % 98 % [facility] ([facility] ) Body height 60.9 [in_i] 60.9 [in_i] [facility] ([facility] ) 5'0.90" Body weight 239.00 [lb_av] 239.00 [lb_av] MEDEN T ([facility] ) Diastolic blood pressure 72 mm[Hg] 72 mm[Hg] [facility] ([facility] ) Body mass index (BMI) [Ratio] 45.3 kg/m2 45.3 k g/m2 [facility] ([facility] ) Systolic blood pressure 108 mm[Hg] 108 mm[Hg] M [facility] ([facility] ) Systolic blood pressure 126 mm[Hg] 126 mm[Hg] M [facility] ([facility] ) Diastolic blood pressure 70 mm[Hg] 70 mm[Hg] [facility] ([facility] ) Heart rate 83 /min 83 /min [facility] ([facility] ) Body temperature 97.1 [degF] 97.1 [degF] [facility] ([facility] ) Body height 60.9 [in_i] 60.9 [in_i] [facility] ([facility] ) 5'0.90" Body weight 236.00 [lb_av] 236.00 [lb_av] MEDEN T ([facility] ) Body mass index (BMI) [Ratio] 44.7 kg/m2 44.7 k g/m2 [facility] ([facility] ) Oxygen saturation in Arterial blood by Pulse oximetry 97 % 97 % [facility] ([facility] ) Heart rate 80 /min 80 /min [facility] ([facility] ) Body height 60.9 [in_i] 60.9 [in_i] [facility] ([facility] ) 5'0.90" Body weight 232.00 [lb_av] 232.00 [lb_av] MEDEN T ([facility] ) Body mass index (BMI) [Ratio] 44.0 kg/m2 44.0 k g/m2 [facility] ([facility] ) Systolic blood pressure 108 mm[Hg] 108 mm[Hg] M EDENT ([facility] ) Diastolic blood pressure 80 mm[Hg] 80 mm[Hg] MARY ([facility]) Body temperature 97.1 [degF] 97.1 [degF] [facility])
--- OUTSIDE RECORDS SUMMARY | 2021-05-19 23:55 | CCD | Continuity of Care Document ---
Author Author Sarah CHASE OIL AND GAS WELL TREATMENT OPERATOR Organization Unknown Address [address] [place] [address] Phone [phone] Care Team Providers Care Mail Censor Name Role Phone Carmelo Trevino D.O.M [phone] Problems Description No Information Available Social History Type Date Description Comments Sex Unknown Tobacco Use Start: Unknown Never Smoked Cigarettes Smoking Status Reviewed: 03/21/21 Never Smoked Cigarettes ETOH Use Rarely consumes alcohol Allergies, Adverse Reactions, Alerts Description No Known Drug Allergies Medications Active Medications SIG Qnty Indications Ordering Provide r Date Synthroid 150mcg Tablets 1 tab by mouth every day-brii 30tabs Selena Chase NP Immunizations Description No Information Available Vital Signs Date Vital Result Comment 03/21/2021 9:09am BP Systolic 110 mmHg BP Diastolic 82 mmHg Heart Rate 79 /min Height 60.9 inches 5'0.90" Weight 228.38 lb BMI (Body Mass Index) 43.3 kg/m2 O2 % BldC Oximetry 98 % 11/08/2020 8:48am BP Systolic 108 mmHg BP Diastolic 72 mmHg Heart Rate 71 /min Body Temperature 96.6 F Height 60.9 inches 5'0.90" Weight 239.00 lb BMI (Body Mass Index) 45.3 kg/m2 O2 % BldC Oximetry 98 % Results Description No Information Available Procedures Date Code Description Status 03/21/2021 41191 Office/Outpatient Established Mo d MDM 30-39 Min Completed 11/08/2020 79598 Office/Outpatient Established Lo w MDM 20-29 Min Completed Medical Devices Description No Information Available Encounters Type Date Location Provider Dx Diagnosis Office Visit 03/21/2021 9:00a DR. Katy Fish Selena B. Tuan, N P E03.9 Hypothyroidism, unspecified N91.2 Amenorrhea, unspecified Office Visit 11/08/2020 9:00a DR. Katy Chase, N P E03.9 Hypothyroidism, unspecified Assessments Date Code Description Provider 03/21/2021 E03.9 Hypothyroidism, unspecified Ml Chase, OIL AND GAS WELL TREATMENT OPERATOR 03/21/2021 N91.2 Amenorrhea, unspecified Selena Chase, KEVIN 11/08/2020 E03.9 Hypothyroidism, unspecified Ml Chase NP Plan of Treatment Future Appointment(s):* 06/18/2021 9:45 am - Selena Chase NP at DR. Katy Schroeder 03/21/2021 - Selena Chase NP* E03.9 Hypothyroidism, unspecified* New Labs:* BHCG Quantitative, Ordered: 03/21/21 * TSH & Free T4, Scheduled: 03/21/21 * Comments:* Pt here for evaluation and tx of Hypothyroidism. Moved from [place].Was dx at age 6yo with HypothyroidismHas FH, no goiter on exam.Delivered 01/13/2020- 3 weeks early due to preeclampsia healthy girl03/06/2020- TSH= 0.660, FT4= 1.20- [id number]/08/2020- TSH= 81.410, FT4= 0.35- missed 2 weeks of medication prior to labsWas on Synthroid 200 mcg po qd. Labs done 08/28/20- TSH= 0.020 FT4= 1.77- over replaced. Dose decreased to Synthroid 175 mcg po qd.Labs done 11/05/20- TSH= 4.610, FT4= 1.05- may have missed couple doses Pt has lost 10 lbs since last visit. Labs done 03/18/21- TSH= 0.180, FT4= 1.43No menses january or feb- per pt, negative Home test. Pt is not using protection. Will continue same for now until results of test. Will recheck in 3 months, * Follow up:* RTO 3 months JL * N91.2 Amenorrhea, unspecified* Comments:* Pt usually has monthly periods. LMP 6/23/21Has missed January and Feb. Not using protection. Will try to add HCG to recent labs Functional Status Description No Information Available Mental Status Description No Information Available Referrals Description No Information Available
--- OUTSIDE RECORDS SUMMARY | 2021-05-19 23:55 | CCD | Continuity of Care Document ---
Author Author Sarah CHASE MCAT TUTOR Organization Unknown Address [address] [place] [phone] Phone [phone] Care Team Providers Care Casting Machine Control Board Operator Name Role Phone Carmelo Trevino D.O.M [phone] Problems Description No Information Available Social History Type Date Description Comments Sex Unknown Tobacco Use Start: Unknown Never Smoked Cigarettes Smoking Status Reviewed: 03/21/21 Never Smoked Cigarettes ETOH Use Rarely consumes alcohol Allergies, Adverse Reactions, Alerts Description No Known Drug Allergies Medications Active Medications SIG Qnty Indications Ordering Provide r Date Synthroid 175mcg Tablets 1 tab by mouth every day-brii 90tabs Selena Chase NP Immunizations Description No Information [...] Available Procedures Date Code Description Status 03/21/2021 03060 Office/Outpatient Established Mo d MDM 30-39 Min Completed 11/08/2020 17067 Office/Outpatient Established Lo w MDM 20-29 Min Completed Medical Devices Description No Information Available Encounters Type Date Location Provider Dx Diagnosis Office Visit 03/21/2021 9:00a DR. Katy Fish Selena B. Tuan, N P E03.9 Hypothyroidism, unspecified N91.2 Amenorrhea, unspecified Office Visit 11/08/2020 9:00a DR. Katy Chase, N P E03.9 Hypothyroidism, unspecified Assessments Date Code Description Provider 03/21/2021 E03.9 Hypothyroidism, unspecified Ml Chase, MCAT TUTOR 03/21/2021 N91.2 Amenorrhea, unspecified Selena Chase, MCAT TUTOR 11/08/2020 E03.9 Hypothyroidism, unspecified Ml Chase, KEVIN Plan of Treatment 03/21/2021 - Selena Chase NP* E03.9 Hypothyroidism, unspecified* New Labs:* BHCG Quantitative, Ordered: 03/21/21 * TSH & Free T4, Scheduled: 03/21/21 * Comments:* Pt here for evaluation and tx of Hypothyroidism. Moved from [place].Was dx at age 6yo with HypothyroidismHas FH, no goiter on exam.Delivered 01/13/2020- 3 weeks early due to preeclampsia healthy girl03/06/2020- TSH= 0.660, FT4= 1.20- [id number]/08/2020- TSH= 81.410, FT4= 0.35- missed 2 weeks [...] Comments:* Pt usually has monthly periods. LMP 12/26/20Has missed January and Feb. Not using protection. Will try to add HCG to recent labs Functional Status Description No Information Available Mental Status Description No Information Available Referrals Refer to Dr Reason for Referral Status Appt Date Katy Schroeder MD hypothyroid Created [address] [place] [address], [address] [phone] Katy Schroeder MD hypothyroid Created [address] [place] [phone]
[2021-05-20] MEDS ORDERED: SYNT150T (00:33)
[2021-05-20] MEDS ORDERED: FLUO20CA22 (00:33)
--- OUTSIDE RECORDS SUMMARY | 2021-05-20 00:57 | CCD ---
Author Author [facility] Organization [facility] Address Unknown Phone Unavailable Care Team Providers Care Picture Booker Name Role Phone RENA, B JASMYNE POLYSOMNOGRAPH TECH Unavailable Unavailable RENA, B JASMYNE POLYSOMNOGRAPH TECH Unavailable Unavailable RENA, B JASMYNE POLYSOMNOGRAPH TECH Unavailable Unavailable RENA, B JASMYNE POLYSOMNOGRAPH TECH Unavailable Unavailable RENA, B JASMYNE POLYSOMNOGRAPH TECH Unavailable Unavailable RENA, B JASMYNE POLYSOMNOGRAPH TECH Unavailable Unavailable RENA, B JASMYNE POLYSOMNOGRAPH TECH Unavailable Unavailable RENA, B JASMYNE POLYSOMNOGRAPH TECH Unavailable Unavailable RENA, B JASMYNE POLYSOMNOGRAPH TECH Unavailable Unavailable RENA, B JASMYNE POLYSOMNOGRAPH TECH Unavailable Unavailable RENA, B JASMYNE POLYSOMNOGRAPH TECH Unavailable Unavailable RENA, B JASMYNE POLYSOMNOGRAPH TECH Unavailable Unavailable RENA, B JASMYNE POLYSOMNOGRAPH TECH Unavailable Unavailable RENA, B JASMYNE POLYSOMNOGRAPH TECH Unavailable Unavailable RENA, B JASMYNE POLYSOMNOGRAPH TECH Unavailable Unavailable RENA, B JASMYNE POLYSOMNOGRAPH TECH Unavailable Unavailable RENA, B JASMYNE POLYSOMNOGRAPH TECH Unavailable Unavailable RENA, B JASMYNE POLYSOMNOGRAPH TECH Unavailable Unavailable RENA, B JASMYNE POLYSOMNOGRAPH TECH Unavailable Unavailable RENA, B JASMYNE POLYSOMNOGRAPH TECH Unavailable Unavailable RENA, B JASMYNE POLYSOMNOGRAPH TECH Unavailable Unavailable RENA, B JASMYNE POLYSOMNOGRAPH TECH Unavailable Unavailable RENA, B JASMYNE POLYSOMNOGRAPH TECH Unavailable Unavailable RENA, B JASMYNE POLYSOMNOGRAPH TECH Unavailable Unavailable RENA, B JASMYNE POLYSOMNOGRAPH TECH Unavailable Unavailable RENA, B JASMYNE POLYSOMNOGRAPH TECH Unavailable Unavailable RENA, B JASMYNE POLYSOMNOGRAPH TECH Unavailable Unavailable RENA, B JASMYNE POLYSOMNOGRAPH TECH Unavailable Unavailable RENA, B JASMYNE POLYSOMNOGRAPH TECH Unavailable Unavailable RENA, B JASMYNE POLYSOMNOGRAPH TECH Unavailable Unavailable RENA, B JASMYNE POLYSOMNOGRAPH TECH Unavailable Unavailable RENA, B JASMYNE POLYSOMNOGRAPH TECH Unavailable Unavailable RENA, B JASMYNE POLYSOMNOGRAPH TECH Unavailable Unavailable RENA, B JASMYNE POLYSOMNOGRAPH TECH Unavailable Unavailable RENA, B JASMYNE POLYSOMNOGRAPH TECH Unavailable Unavailable RENA, B JASMYNE POLYSOMNOGRAPH TECH Unavailable Unavailable RENA, B JASMYNE POLYSOMNOGRAPH TECH Unavailable Unavailable RENA, B JASMYNE POLYSOMNOGRAPH TECH Unavailable Unavailable RENA, B JASMYNE POLYSOMNOGRAPH TECH Unavailable Unavailable RENA, B JASMYNE POLYSOMNOGRAPH TECH Unavailable Unavailable RENA, B JASMYNE POLYSOMNOGRAPH TECH Unavailable Unavailable RENA, B JASMYNE POLYSOMNOGRAPH TECH Unavailable Unavailable RENA, B JASMYNE POLYSOMNOGRAPH TECH Unavailable Unavailable RENA, B JASMYNE POLYSOMNOGRAPH TECH Unavailable Unavailable RENA, B JASMYNE POLYSOMNOGRAPH TECH Unavailable Unavailable RENA, B JASMYNE POLYSOMNOGRAPH TECH Unavailable Unavailable RENA, B JASMYNE POLYSOMNOGRAPH TECH Unavailable Unavailable RENA, B JASMYNE POLYSOMNOGRAPH TECH Unavailable Unavailable RENA, B JASMYNE POLYSOMNOGRAPH TECH Unavailable Unavailable RENA, B JASMYNE POLYSOMNOGRAPH TECH Unavailable Unavailable RENA, B JASMYNE POLYSOMNOGRAPH TECH Unavailable Unavailable RENA, B JASMYNE POLYSOMNOGRAPH TECH Unavailable Unavailable RENA, B JASMYNE POLYSOMNOGRAPH TECH Unavailable Unavailable RENA, B JASMYNE POLYSOMNOGRAPH TECH Unavailable Unavailable RENA, B JASMYNE POLYSOMNOGRAPH TECH Unavailable Unavailable RENA, B JASMYNE POLYSOMNOGRAPH TECH Unavailable Unavailable RENA, B JASMYNE POLYSOMNOGRAPH TECH Unavailable Unavailable RENA, B JASMYNE POLYSOMNOGRAPH TECH Unavailable Unavailable RENA, B JASMYNE POLYSOMNOGRAPH TECH Unavailable Unavailable RENA, B JASMYNE POLYSOMNOGRAPH TECH Unavailable Unavailable RENA, B JASMYNE POLYSOMNOGRAPH TECH Unavailable Unavailable RENA, B JASMYNE POLYSOMNOGRAPH TECH Unavailable Unavailable Re-disclosure Warning The records that [...] is protected by Article 27-F of the [place] State Public Health law. If you continue you may have access to information: Regarding HIV / AIDS; Provided by facilities licensed or operated by the [facility] Office of Mental Health; or Provided by the [facility] Office for People With Developmental Disabilities. If such information is present, then the following [facility] mandated warning applies: This information has been [...] law may result in a fine or snf sentence or both. A general authorization for the release of medical or other information is NOT sufficient authorization for further disc losure. Encounters Encounter Providers Location Date Indications Data Source(s ) Outpatient Attender: JASMYNE CHASE NP Physical Therapy 09:00:00 AM EDT [facility] ([facility]) OFFICE OUTPATIENT VISIT 15 MINUTES Attender: JASMYNE CHASE NP Physical Therapy 11/08/2020 09:00:00 AM EDT [facility] ([facility]) Outpatient Attender: JASMYNE CHASE NP Physical Therapy 07:45:00 AM EST [facility] ([facility]) Outpatient Attender: JASMYNE CHASE NP Physical Therapy 01:30:00 PM EST [facility] ([facility] 10[facility]05:01 AM EDT [facility] Outpatient [facility] 04/16/2020 01:09:59 PM EDT [facility] Outpatient [facility] 04/16/2020 01:09:59 PM EDT [facility] Outpatient [facility] 04/16/2020 11:49:01 AM EDT [facility] Outpatient [facility] 04/16/2020 11:47:00 AM EDT [facility] Outpatient [facility] 04/16/2020 11:46:00 AM EDT [facility] Outpatient [facility] 04/16/2020 10:44:01 AM EDT [facility] Outpatient [facility] 04/16/2020 10:43:00 AM EDT [facility] Medications Medication Brand Name Start Date Product Form Dose Route Admi nistrative Instructions Pharmacy Instructions Status Indications Reaction Description Data Source(s) Levothyroxine Sodium 0.15 MG Oral Tablet [Synthroid] Synthro id 03/22/2021 12:00:00 AM EDT ORAL active M [facility] ([facility] Levothyroxine Sodium 0.175 MG Oral Tablet [Synthroid] Synthr oid 09/04/2020 12:00:00 AM EST ORAL active [facility] ([facility] ) Insurance Providers Payer name Policy type / Coverage type Policy ID Covered green party ID Covered green party's relationship to vázquez Policy Vázquez Plan Information [facility] [id number] [facility] [id number] [facility] P UNAVAILABLE S UNAVAILABLE Problems, Conditions, and Diagnoses Code Display Name Description Problem Type Effective Dates Data Source(s) 520.6 [place] teeth impaction [place] teeth impaction 04/16/2020 01:09:44 PM EDT [facility] Surgeries/Procedures Procedure Description Date Indications Data Source(s) OFFICE OUTPATIENT VISIT 25 MINUTES 03/21/2021 12:00:00 AM EDT [facility] ([facility] OFFICE OUTPATIENT VISIT 15 MINUTES 11/08/2020 12:00:00 AM EDT [facility] ([facility]) Results ID Date Data Source [id number] 04/16/2020 11:08:05 AM EDT [facility] Vital SignsBlood Pressure: 108/79 Patient History Medical History:HypothyroidismSurgical History:None. Family History:Cancer - Breast (Paternal Grandmother)Diabetes (Mother, Paternal Grandmother)Heart disease (Paternal Grandmother)Hypertension (Mother, Father, Paternal Grandmother)Social/Personal History: Smoking Status: never smokerChief Complaint: Routine CleaningVisit Type: ExamCurrent Problems: [place] teeth impaction (ICD-520.6) (VLN85-B66.1)Problem list reviewed during this update.No known problems.Current Medications: * SYNTHROID * MIRENA Medication list reviewed during this update.Allergy list reviewed during this update.No known allergies.Past Medical History:(reviewed - no changes required) Hypothyroidism Dental Chart: Procedures:Type - CDT Code - Description B - (D1206) Topical application of fluoride varnish (Performed by Regine Stein RDH) B - (D1110) Prophylaxis, adult (Performed by Emil PEREIRARegine) B - (D0274) Bitewings, 4 radiographic images (Performed by Emil PEREIRARegine) B - (D0330) Panoramic film (Performed by Emil PEREIRARegine) B - (D0150) Comprehensive oral evaluation - new or established patient (Performed by Lydia Maldonado DDS) Treatments:Type - CDT Code - Description T - (D7140) Extraction, erupted tooth or exposed root (elevation and/or forceps removal) on Tooth # 1 (Performed by Emil PEREIRARegine) T - (D7140) Extraction, erupted tooth or exposed root (elevation and/or forceps removal) on Tooth # 16 (Performed by Emil PEREIRARegine) T - (D7140) Extraction, erupted tooth or exposed root (elevation and/or forceps removal) on Tooth # 17 (Performed by Emil PEREIRARegine) T - (D7140) Extraction, erupted tooth or exposed root (elevation and/or forceps removal) on Tooth # 32 (Performed by Emil PEREIRARegine) Existing:Type - CDT Code - Description[E] Not Erupted On #1, #17, #32[E] Amalgam Mandaen On #3 Surface OL, #31 Surface O[E] Root Canal On #18 Region DM[E] Resin-Based Composite - Direct On #19 Surface O, #30 Surface O[E] [place] - 3/4 Cast Predominantly Base Metal On [...] Recommneded daily flossing. NV: Biannual exam and [id number]: Pt has three children, one set of twins. family. Regine Stein RDH by crystal (04/16/2020 12:00 PM): ; vikram (Apr 16 2020 1:09PM): [facility](-). CC: some discomfort with wisdom teethReviewed Xrays. [...] Notes and Watches: Assessment & Plan Problems:Added: [place] teeth impaction (ICD-520.6) (ICD10- K01.1)Medications:SYNTHROIDMIRENAMedication Changes:Added: * MIRENA* SYNTHROIDAllergies:No Known Allergies (updated 04/16/2020) Orders:Oral Surgery Referral [[id number]] Curren t Problems: [place] teeth impaction (ICD-520.6) (MKG93-B04.1)Current Medications: * SYNTHROID * MIRENA Dental Chart: Chart Notes:mtyo (Apr 24 2020 10:04AM): Fltx varnish placed Tooth Notes and Watches: Name Value Range Interpretation Code Description Data Jill rce(s) Supporting Document(s) Procedure Social History Code Duration Value Status Description Data Source(s ) Smoking 03/21/2021 12:00:00 AM EDT Never Smoked Cigarettes com pleted Never Smoked Cigarettes [facility] ([facility]) Vital Signs ID Date Data Source UNK Name Value Range Interpretation Code Description Data Source(s) Body height 60.9 [in_i] 60.9 [in_i] [facility] ([facility] ) 5'0.90" Body weight 228.38 [lb_av] 228.38 [lb_av] MEDEN T ([facility]) Body mass index (BMI) [Ratio] 43.3 kg/m2 43.3 k g/m2 [facility] ([facility]) Systolic blood pressure 110 mm[Hg] 110 mm[Hg] M [facility] ([facility] Diastolic blood pressure 82 mm[Hg] 82 mm[Hg] [facility] ([facility]) Heart rate 79 /min 79 /min [facility] ([facility]) Oxygen saturation in Arterial blood by Pulse oximetry 98 % 98 % [facility] ([facility]) Heart rate 71 /min 71 /min [facility] ([facility]) Body temperature 96.6 [degF] 96.6 [degF] [facility] ([facility] Body height 60.9 [in_i] 60.9 [in_i] [facility] ([facility] ) 5'0.90" Body weight 239.00 [lb_av] 239.00 [lb_av] [facility] T ([facility] Body mass index (BMI) [Ratio] 45.3 kg/m2 45.3 k g/m2 [facility] ([facility] ) Oxygen saturation in Arterial blood by Pulse oximetry 98 % 98 % [facility] ([facility] ) Diastolic blood pressure 72 mm[Hg] 72 mm[Hg] [facility] ([facility] ) Systolic blood pressure 108 mm[Hg] 108 mm[Hg] M [facility] ([facility] ) Systolic blood pressure 126 mm[Hg] 126 mm[Hg] M [facility] ([facility] ) Diastolic blood pressure 70 mm[Hg] 70 mm[Hg] [facility] ([facility] ) Heart rate 83 /min 83 /min [facility] ([facility] ) Body temperature 97.1 [degF] 97.1 [degF] [facility] ([facility] Body height 60.9 [in_i] 60.9 [in_i] [facility] ([facility] ) 5'0.90" Body weight 236.00 [lb_av] 236.00 [lb_av] MED[facility] T ([facility] ) Body mass index (BMI) [Ratio] 44.7 kg/m2 44.7 k g/m2 [facility] ([facility] ) Oxygen saturation in Arterial blood by Pulse oximetry 97 % 97 % [facility] ([facility] ) Heart rate 80 /min 80 /min [facility] ([facility] ) Body height 60.9 [in_i] 60.9 [in_i] [facility] ([facility] ) 5'0.90" Systolic blood pressure 108 mm[Hg] 108 mm[Hg] M [facility] ([facility] ) Diastolic blood pressure 80 mm[Hg] 80 mm[Hg] [facility] ([facility] Body temperature 97.1 [degF] 97.1 [degF] [facility] ([facility] Body weight 232.00 [lb_av] 232.00 [lb_av] CAYLA Wilhelm ([facility] Body mass index (BMI) [Ratio] 44.0 kg/m2 44.0 k g/m2 MARY ([facility])
== END 2021-05-20 00:48 | disposition left against medical advice (07) ==
LOC: M ED 23:47
DX: Z53.29 Procedure and treatment not carried out because of patient's decision for other reasons (principal)

== ENCOUNTER 2022-07-11 07:19 | Inpatient (IN) | payer OTHER ==
[2022-07-11] VITALS (21 sets, daily range): BP systolic 109–145; BP diastolic 63–93
[~2022-07-11] VITALS: Ht 154.9 cm; Wt 105.9 kg
[~2022-07-11 07:19] MED LIST changes: +FLUO20CA22; -LABE100T4 PO; +LABE100T6 PO; +SYNT150T
[2022-07-11] MEDS ORDERED: ASPI81CH32 PO (07:49)
[2022-07-11] MEDS ORDERED: PNV1TABL16 PO (07:49)
[2022-07-11] MEDS ORDERED: TRANEXAMIC ACID INJection 1,000 MG in NS 100 ML IV PRN (08:00)
[2022-07-11] MEDS ORDERED: CARBOPROST TROMETHAMINE 250 MCG/ML AMP IM PRN (08:00)
[2022-07-11] MEDS ORDERED: LACTATED RINGER'S 1000 ML IV STA (08:00)
[2022-07-11] MEDS ORDERED: LIDOCAINE 1% MDV 20ML VIAL INFIL PRN (08:00)
[2022-07-11] MEDS ORDERED: OXYTOCIN DRIP 30 UNITS in IV 1 EA IV PRN ×4 (08:00)
[2022-07-11] MEDS ORDERED: PENICILLIN G POTASSIUM 5 MU IV 5 MU in D5W MINI-BAG PLUS 100 ML IV STA (08:00)
[2022-07-11] MEDS ORDERED: METHYLERGONOVINE MALEATE 0.2 MG/ML VIAL (J2210) IM PRN (08:00)
[2022-07-11] MEDS ORDERED: PROMETHAZINE 25MG/ML 1ML VIAL IV ONE (08:05)
[2022-07-11] MEDS ORDERED: BUTORPHANOL 2 MG/ML 1ML VIAL IV ONE (08:05)
[2022-07-11] MEDS ORDERED: LR 1,000 ML IV SCH (09:00)
[2022-07-11 09:04] LABS: BASO % 0.3 % (0.0-1.0); EOS % 0.2 % (0.0-3.0); HEMATOCRIT 36.1 % (36.0-47.0); HEMOGLOBIN 12.2 g/dl (12.0-15.5); LYMPH # 2.5 10^3/uL (1.5-5.0); LYMPH % 19.5 % (24.0-44.0); MEAN CORPUSCULAR HGB CONC 33.8 g/dl (32.0-36.5); MEAN CORPUSCULAR VOLUME 85.7 fl (80.0-96.0); MONO # 0.7 10^3/uL (0.0-0.8); MONO % 5.6 % (2.0-8.0); NEUTROPHILS # 9.4 10^3/uL (1.5-8.5); NEUTROPHILS % 73.7 % (36.0-66.0); PLATELET COUNT, AUTOMATED 349 10^3/uL (150-450); RED BLOOD COUNT 4.21 10^6/uL (4.00-5.40); WHITE BLOOD COUNT 12.7 10^3/uL (4.0-10.0)
[2022-07-11] MEDS ORDERED: diphenhydrAMINE 50MG/ML VIAL IV PRN (09:20)
[2022-07-11] MEDS ORDERED: ONDANSETRON 4MG 2ML VIAL IV PRN (09:20)
[2022-07-11] MEDS ORDERED: LR 500 ML IV PRN (09:20)
[2022-07-11] MEDS ORDERED: EPIDURAL/PCA KEYS XX PRN (09:20)
[2022-07-11] MEDS ORDERED: FENTANYL/ROPIVACAINE/NACL BAG 100 ML EPIDURAL SCH (09:20)
[2022-07-11] MEDS ORDERED: ePHEDrine SULFATE 25 MG/5 ML(5MG/ML) SYRINGE IVP PRN (09:20)
[2022-07-11] MEDS ORDERED: NALOXONE INJ 0.4MG/1ML VIAL IV PRN (09:20)
[2022-07-11 09:31] LABS: LDH LACTATE DEHYDROGENASE 262 U/L (120-246)
[2022-07-11 09:32] LABS: ALT/SGPT 14 U/L (7.0-40); AST/SGOT 21 U/L (<34); BILIRUBIN,TOTAL 0.8 MG/DL (0.3-1.2); CREATININE FOR GFR 0.59 MG/DL (0.55-1.30); GLOMERULAR FILTRATION RATE > 60.0 (>60)
[2022-07-11 09:50] LABS: URIC ACID 4.6 MG/DL (3.1-7.8)
[2022-07-11] MEDS ORDERED: LIDOCAINE 2% 100MG/5ML SDV (FOR ANES.) As Ordered ONE (11:14)
[2022-07-11] MEDS ORDERED: RHOGAM 300MCG (1500IU) INJ IM SCH (11:45)
[2022-07-11] MEDS ORDERED: ACETAMINOPHEN TAB 650MG DOSE (2X325MG) PO PRN (11:45)
[2022-07-11] MEDS ORDERED: IBUPROFEN 800 MG TAB PO PRN (11:45)
[2022-07-11] MEDS ORDERED: METHYLERGONOVINE MALEATE 0.2 MG TAB PO PRN (11:45)
[2022-07-11] MEDS ORDERED: IBUPROFEN 600MG TAB PO PRN (11:45)
[2022-07-11] MEDS: OXYTOCIN DRIP 30 UNITS in IV 1 EA IV SCH ×2 (11:45→12:28)
[2022-07-11] MEDS ORDERED: DOCUSATE SODIUM 100MG CAPSULE PO PRN (11:45)
[2022-07-11] MEDS ORDERED: DIBUCAINE 1% OINTMENT 30GM TOP PRN (11:45)
[2022-07-11] MEDS ORDERED: SYNT112T2 PO (12:13)
[2022-07-11] MEDS ORDERED: PEN G POT 3,000,000 UNIT/50 ML 3,000,000 UNIT in IV 1 EA IV SCH (13:00)
[2022-07-11] MEDS ORDERED: HOME MED LIST COMPLETE! XX SCH (17:45)
[2022-07-12] MEDS: LEVOTHYROXINE 112MCG TABLET (0.112MG) PO SCH (05:58)
[2022-07-12 06:00] VITALS: BP 115/66
[2022-07-12] MEDS: PRENATAL VITAMINS CHEWABLE TABLET PO SCH (11:52)
[2022-07-12] MEDS: ACETAMINOPHEN 500 MG TAB PO PRN (11:53)
[2022-07-12] MEDS ORDERED: ANUSOL HC CREAM 30GM TOP PRN (15:45)
[2022-07-12 18:00] VITALS: BP 120/84
[2022-07-13 06:00] VITALS: BP 119/78
[2022-07-13] MEDS: LEVOTHYROXINE 112MCG TABLET (0.112MG) PO SCH (06:20)
[2022-07-13] MEDS: PRENATAL VITAMINS CHEWABLE TABLET PO SCH (08:41)
[2022-07-13] MEDS: ACETAMINOPHEN 500 MG TAB PO PRN (08:42)
[2022-07-13] MEDS ORDERED: IBUP-1022 PO (11:19)
[2022-07-13] MEDS ORDERED: ACET1TAB55 PO (11:19)
[2022-07-13] MEDS ORDERED: COLA100C5 PO (11:19)
[2022-07-13] MEDS ORDERED: SYNT112T2 PO (11:19)
== END 2022-07-13 14:20 | disposition home or self-care (01) | DRG 807 ==
LOC: M LDO 07:19 → M LDI 08:21 → M OBS 13:04
PROVIDERS: ADMIT Advanced Practice Midwife; ATTEND Advanced Practice Midwife
PROC: 10E0XZZ Delivery of Products of Conception, External Approach (ICD-10-PCS; principal; 2022-07-11)
PROC: 10907ZC Drainage of Amniotic Fluid, Therapeutic from Products of Conception, Via Natural or Artificial Opening (ICD-10-PCS; 2022-07-11)
PROC: 0UQMXZZ Repair Vulva, External Approach (ICD-10-PCS; 2022-07-11)
PROC: 0HQ9XZZ Repair Perineum Skin, External Approach (ICD-10-PCS; 2022-07-11)
DX: O99.284 Endocrine, nutritional and metabolic diseases complicating childbirth (principal); Z37.0 Single live birth; O69.81X0 Labor and delivery complicated by cord around neck, without compression, not applicable or unspecified; O99.824 Streptococcus B carrier state complicating childbirth; Z3A.39 39 weeks gestation of pregnancy; E03.1 Congenital hypothyroidism without goiter; O99.214 Obesity complicating childbirth; E66.9 Obesity, unspecified; O71.82 Other specified trauma to perineum and vulva; O70.0 First degree perineal laceration during delivery; Z79.890 Hormone replacement therapy

== ENCOUNTER 2023-10-01 10:49 | Day surgery (SDC) | payer OTHER ==
[~2023-10-01] VITALS: Ht 154.9 cm; Wt 108.3 kg
[~2023-10-01 10:49] MED LIST changes: +ACET1TAB55 PO; +ASPI81CH32 PO; +COLA100C5 PO; +IBUP-1022 PO; +LEVO175T2 PO; +PNV1TABL16 PO; +SYNT112T2 PO
[2023-10-01] MEDS ORDERED: LR 1,000 ML IV SCH (11:35)
[2023-10-01] MEDS ORDERED: ONDANSETRON 4MG 2ML VIAL As Ordered ONE (13:29)
[2023-10-01] MEDS ORDERED: propofoL 200 MG/20 ML VIAL As Ordered ONE (13:29)
[2023-10-01] MEDS ORDERED: fentaNYL 100 MCG/2 ML INJECTION As Ordered ONE (13:29)
[2023-10-01] MEDS ORDERED: KETOROLAC 60MG 2ML VIAL As Ordered ONE (13:29)
[2023-10-01] MEDS ORDERED: dexmedeTOMIDine (4MCG/ML)200MCG/50ML BTL (PRECEDEX) As Ordered ONE (13:29)
[2023-10-01] MEDS ORDERED: ACETAMINOPHEN 1000MG 100ML IV BAG As Ordered ONE (13:29)
[2023-10-01] MEDS ORDERED: LIDOCAINE 2% 100MG/5ML SDV (FOR ANES.) As Ordered ONE (13:29)
[2023-10-01] MEDS ORDERED: MIDAZOLAM INJ 2MG/2ML VIAL As Ordered ONE (13:29)
[2023-10-01] MEDS ORDERED: fentaNYL 100 MCG/2 ML INJECTION IV PRN (13:55)
[2023-10-01] MEDS ORDERED: oxyCODONE 5MG TAB PO PRN (13:55)
[2023-10-01] MEDS ORDERED: ONDANSETRON 4MG 2ML VIAL IV PRN (13:55)
[2023-10-01] MEDS ORDERED: ePHEDrine SULFATE 25 MG/5 ML(5MG/ML) SYRINGE As Ordered ONE (13:55)
[2023-10-01] MEDS ORDERED: HYDROMORPHONE HCL 0.5 MG/ 0.5 ML SYRINGE IV PRN (13:55)
[2023-10-01 15:13] VITALS: BP 128/77; TEMP 97.1; O2SAT 100
== END 2023-10-01 15:15 | disposition home or self-care (01) ==
LOC: M SDC 10:49
PROVIDERS: ATTEND Orthopaedic Surgery Hand Surgery
DX: G56.01 Carpal tunnel syndrome, right upper limb (principal); E03.9 Hypothyroidism, unspecified; Z79.899 Other long term (current) drug therapy
CPT/HCPCS: 29848; 81025; J0131; J0665; J1100; J1885; J2250; J2405; J3010